=== PATIENT | female | born 1975 | race Caucasian/White ===

== ENCOUNTER 2022-12-14 22:22 | Emergency (ER) | payer MEDICAID ==
[~2022-12-14] VITALS: Ht 157.5 cm; Wt 59.0 kg
[2022-12-14 22:30] VITALS: BP_SYST 119
--- NOTE | 2022-12-14 22:30 | NUR ---
Pt placed to ER bed 05, to gown, to cardiac cath technician. Pt states that while visiting her daughter here in the hospital, she experienced two syncopal episodes. The first one occured 1 hour ago while using the restroom and she hit her head against the wall and vomited. Pt denies c/o headache, no head trauma noted. She states that she experienced a second syncopal episode 15 minutes ago while in the restroom and became incontinent of urine and stool.
--- NOTE | 2022-12-14 22:45 | NUR ---
Pt report given to CODEY Huddleston.
[2022-12-15 00:22] LABS: BILIRUBIN,URINE NEGATIVE (NEGATIVE); BLOOD, URINE NEGATIVE (NEGATIVE); COLOR,URINE YELLOW (YELLOW); GLUCOSE,URINE NEGATIVE (NEGATIVE); KETONES,URINE NEGATIVE (NEGATIVE); LEUKOCYTE ESTERASE ,URINE NEGATIVE (NEGATIVE); NITRITE, URINE NEGATIVE (NEGATIVE); PH,URINE 8.5 (5.0-8.0); PROTEIN URINE 1+ (NEGATIVE)
[2022-12-15 00:42] LABS: CLARITY/URINE HAZY (CLEAR)
[2022-12-15 00:43] LABS: RBC,URINE 0-3 /HPF (0-3); WBC,URINE 0-3 /HPF (0-3)
[2022-12-15 00:44] LABS: BACTERIA,URINE None Seen /HPF (None Seen); MUCUS,URINE 1+ /LPF (None Seen)
[2022-12-15 00:54] LABS: BASOPHILS % (AUTO) 0.2 % (0.0-2.0); EOSINOPHILS % (AUTO) 0.2 % (0.0-4.0); HEMATOCRIT 37.3 % (36-48); HEMOGLOBIN 12.8 g/dL (12.0-16.0); LYMPHOCYTES # (AUTO) 0.8 K/uL (1.0-5.5); MEAN CORPUSCULAR HEMOGLOBIN 31 pg (27-31); MEAN CORPUSCULAR HGB CONC 34 % (32-36); MEAN CORPUSCULAR VOLUME 91 fL (79.0-98.0); MONOCYTES # (AUTO) 0.5 K/uL (0.0-1.0); MONOCYTES % (AUTO) 4.1 % (1.7-9.3); NEUTROPHILS # (AUTO) 11.3 K/uL (1.8-7.7); NEUTROPHILS % (AUTO) 89.5 % (40.0-70.0); PLATELET COUNT (AUTO) 342 K/uL (130-430); RED BLOOD CELL COUNT(AUTO) 4.08 MIL/uL (4.2-6.2); RED CELL DISTRIBUTION WIDTH 12.7 % (9.0-15.0); WHITE BLOOD COUNT (AUTO) 12.6 K/uL (4.8-10.8)
[2022-12-15 01:01] LABS: ANION GAP 7 (5-15); CALCIUM 8.7 mg/dL (8.4-11.0); CHLORIDE 100 mmol/L (98-107); CREATININE 0.72 mg/dL (0.55-1.30); GFR AFRICAN AMERICAN 111 mL/min (>90); GLUCOSE 115 mg/dL (70-99); UREA NITROGEN, BLOOD 9 mg/dL (8-21)
[2022-12-15 01:07] LABS: ALANINE AMINOTRANSFERASE 29 U/L (12-78); ALBUMIN 3.7 g/dL (3.4-4.8); ASPARTATE AMINOTRANSFERASE 23 U/L (10-37); PHOSPHORUS 3.1 mg/dL (2.7-4.5); TOTAL BILIRUBIN 0.8 mg/dL (0.0-1.0)
[2022-12-15] MEDS ORDERED: ONDANSETRON HCL 4 MG/2 ML VIAL IVP ONE (02:00)
[2022-12-15] MEDS ORDERED: ONDANSETRON 4 MG ODT TAB PO ONE (02:00)
[2022-12-15 02:19] VITALS: BP_SYST 136
== END 2022-12-15 02:00 | disposition home or self-care (01) ==
LOC: SED 22:22
DX: R55 Syncope and collapse (principal); R51.9 Headache, unspecified; R53.1 Weakness; Z79.899 Other long term (current) drug therapy
CPT/HCPCS: 99285; 70450; 80053; 81000; 83735; 84100; 85025; 84484; 36415; 93005; 76376; 81025; Q0162